=== PATIENT | male | born 1990 | race Two or more races ===

== ENCOUNTER 2017-06-06 09:27 | Emergency (ER) | payer SELFPAY ==
[~2017-06-06] VITALS: Ht 172.7 cm; Wt 100.3 kg
[2017-06-06 09:29] VITALS: BP 119/72
== END 2017-06-06 10:55 | disposition home or self-care (01) ==
LOC: ED 10:15
DX: S93.401A Sprain of unspecified ligament of right ankle, initial encounter (principal); S93.601A Unspecified sprain of right foot, initial encounter; X50.0XXA Overexertion from strenuous movement or load, initial encounter; Y93.67 Activity, basketball; Y92.310 Basketball court as the place of occurrence of the external cause; Y99.8 Other external cause status
CPT/HCPCS: 99284

== ENCOUNTER 2017-06-09 14:40 | Emergency (ER) | payer SELFPAY ==
[~2017-06-09] VITALS: Ht 170.2 cm; Wt 102.2 kg
[2017-06-09 14:45] VITALS: BP 151/82
== END 2017-06-09 15:31 | disposition home or self-care (01) ==
LOC: ED 15:15
DX: S93.431A Sprain of tibiofibular ligament of right ankle, initial encounter (principal); X50.0XXA Overexertion from strenuous movement or load, initial encounter; Y93.89 Activity, other specified; Y92.69 Other specified industrial and construction area as the place of occurrence of the external cause; Y99.0 Civilian activity done for income or pay
CPT/HCPCS: 99281